=== PATIENT | female | born 1975 | race American Indian/Alaskan Native ===

== ENCOUNTER 2017-05-24 09:02 | Emergency (ER) | payer SELFPAY ==
[2017-05-24] MEDS ORDERED: Oxycodone/Acetaminophen 5/325 mg Tab PO STA (09:45)
[2017-05-24] MEDS ORDERED: Oxycodone/Acetaminophen 5/325 mg Tab ONE (09:47)
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
[2017-05-24 11:34] VITALS: BP 152/84; PULSE 88; RESP 18; TEMP 98.2
[2017-05-24 15:10] VITALS: O2SAT 97
== END 2017-05-24 11:38 | disposition home or self-care (01) ==
LOC: C.ER 09:02
DX: S00.83XA Contusion of other part of head, initial encounter (principal); Y04.0XXA Assault by unarmed brawl or fight, initial encounter

== ENCOUNTER 2017-09-02 18:06 | Emergency (ER) | payer SELFPAY ==
[2017-09-02 18:44] VITALS: BMI 24.3
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
[2017-09-02 22:44] VITALS: BP 134/70; PULSE 72; RESP 20; TEMP 98; O2SAT 98
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
== END 2017-09-02 21:35 | disposition home or self-care (01) ==
LOC: C.ER 18:06
DX: S33.5XXA Sprain of ligaments of lumbar spine, initial encounter (principal); V43.52XA Car driver injured in collision with other type car in traffic accident, initial encounter; Y92.410 Unspecified street and highway as the place of occurrence of the external cause; R07.81 Pleurodynia
CPT/HCPCS: 71046; 72100; 96372; 99284; J1885

== ENCOUNTER 2018-08-05 18:59 | Emergency (ER) | payer SELFPAY ==
[2018-08-05 18:59] VITALS: BMI 24.3
[2018-08-05 19:29] VITALS: O2SAT 98
--- NOTE | 2018-08-05 20:21 | C.PDOC ---
History Of Present Illness 43 y/o female pt presents to the ER c/o persistent cough for x1 week. Associated sx includes clear sputum. Pt originally have yellow sputum with her cough but sx has subsided. Pt denies bodyaches, fever, chills, recent travels, chest pain, dizziness, SOB, nausea, vomiting, sore throat, dysuria, blurry vision and double vision. 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 She also notes that her chiropractor informed her about her elevated blood pressure x2 months ago, but she had not seek any medical attention. Time Seen by Provider: 08/05/18 19:21 Chief Complaint (Nursing): Cough, Cold, Congestion History Per: Patient History/Exam Limitations: no limitations Onset/Duration Of Symptoms: Days (x1 week) Current Symptoms Are (Timing): Still Present Past Medical History Reviewed: Historical Data, Nursing Documentation, Vital Signs Vital Signs: Last Vital Signs Temp 98.4 F 08/05/18 19:14 Pulse 95 H 08/05/18 19:14 Resp 22 08/05/18 19:14 BP 173/101 H 08/05/18 19:14 Pulse Ox 98 08/05/18 19:14 - Medical History PMH: Back Problems, HTN Surgical History: Appendectomy Family History: States: Unknown Family Hx - Social History Hx Alcohol Use: Yes Hx Substance Use: No - Immunization History Hx Tetanus Toxoid Vaccination: Yes Hx Influenza Vaccination: No Hx Pneumococcal Vaccination: No Review Of Systems Except As Marked, All Systems Reviewed And Found Negative. Constitutional: Positive for: Other (+ sick contacts; no recent travels ). Negative for: Fever, Chills Eyes: Negative for: Other (blurry/double vision ) ENT: Negative for: Throat Pain Cardiovascular: Negative for: Chest Pain Respiratory: Positive for: Cough (with clear sputum ). Negative for: Shortness of Breath Gastrointestinal: Negative for: Nausea, Vomiting Genitourinary: Negative for: Dysuria Musculoskeletal: Negative for: Other (bodyaches ) Neurological: Negative for: Dizziness Physical Exam - Physical Exam Appears: Non-toxic, No Acute Distress Skin: Warm, Dry Head: Normacephalic Eye(s): bilateral: Normal Inspection, EOMI Nose: Normal Oral Mucosa: Moist Throat: Normal, No Erythema, No Exudate Neck: Normal ROM, Supple Chest: Symmetrical Cardiovascular: Rhythm Regular Respiratory: Normal Breath Sounds, No Rales, No Rhonchi, No Wheezing Gastrointestinal/Abdominal: Soft, No Tenderness Neurological/Psych: Oriented x3, Normal Speech ED Course And Treatment O2 Sat by Pulse Oximetry: 98 (RA) Pulse Ox Interpretation: Normal Medical Decision Making Medical Decision Making: Impression: cough Plans: -- CXR -- Zithromax Disposition - Disposition Referrals: [facility] [Outside] [facility] [Outside] Disposition: HOME/ ROUTINE Disposition Time: 20:00 Condition: GOOD Additional Instructions: AYANNA FREED, thank you for letting us take care of you today. The emergency medical care you received today was directed at your acute symptoms. If you were prescribed any medication, please fill it and take as directed. It may take several days for your symptoms to resolve. Return to the Emergency Department if your symptoms worsen, do not improve, or if you have any other problems. Please contact your doctor or call one of the physicians/clinics you have been referred to that are listed on the Patient Visit Information form that is included in your discharge packet. Bring any paperwork you were given at discharge with you along with any medications you are taking to your follow up visit. Our treatment cannot replace ongoing medical care by a primary care provider outside of the emergency department. Thank you for allowing the [facility] team to be part of your care today. Follow up with the clinic next week for re-evaluation of your cough and your blood pressure. Prescriptions: Azithromycin [Zithromax] 250 mg PO DAILY #4 tab Benzonatate [Tessalon Perle] 100 mg PO Q8 PRN #20 capsule PRN Reason: Cough Instructions: Upper Respiratory Infection (ED) Forms: [employer] (Andorran) - Clinical Impression Clinical Impression: Hypertension, Bronchitis - Scribe Statement The provider has reviewed the documentation as recorded by the Maurisio Marr Do Provider Attestation: All medical record entries made by the Scribe were at my direction and personally dictated by me. I have reviewed the chart and agree that the record accurately reflects my personal performance of the history, physical exam, medical decision making, and the department course for this patient. I have also personally directed, reviewed, and agree with the discharge instructions and disposition.
[2018-08-05 20:25] VITALS: BP 157/105; PULSE 82; RESP 18; TEMP 98.9
--- NOTE | 2018-08-06 18:18 | RAD ---
Date of service: 08/05/2018 HISTORY: cough r/o infiltrate COMPARISON: 09/02/2017 TECHNIQUE: Chest PA and lateral FINDINGS: LUNGS: No active pulmonary disease. PLEURA: No significant pleural effusion identified. No pneumothorax apparent. CARDIOVASCULAR: No aortic atherosclerotic calcification present. Normal cardiac size. No pulmonary vascular congestion. OSSEOUS STRUCTURES: No significant abnormalities. VISUALIZED UPPER ABDOMEN: Normal. OTHER FINDINGS: None. IMPRESSION: No active disease.
== END 2018-08-05 20:26 | disposition home or self-care (01) ==
LOC: C.ER 18:59
DX: J40 Bronchitis, not specified as acute or chronic (principal); I10 Essential (primary) hypertension

== ENCOUNTER 2018-08-23 18:55 | Emergency (ER) | payer SELFPAY ==
[2018-08-23 18:56] VITALS: BMI 24.3
[2018-08-23 19:12] VITALS: O2SAT 98
[2018-08-23 19:53] LABS: SQUAMOUS EPITHIAL 5 /hpf (0-5); URINE BACTERIA RARE (<OCC); URINE BILIRUBIN NEGATIVE (NEGATIVE); URINE BLOOD 2+ (NEGATIVE); URINE CLARITY Hazy (Clear); URINE COLOR Yellow (YELLOW); URINE GLUCOSE (UA) NORMAL (Normal); URINE LEUKOCYTE ESTERASE 3+ Leu/uL (Negative); URINE PROTEIN 1+ mg/dL (NEGATIVE); URINE UROBILINOGEN NORMAL mg/dL (0.2-1.0)
--- NOTE | 2018-08-23 20:31 | C.PDOC ---
History Of Present Illness 43 y/o female presents to the ED complaining of dysuria and urinary frequency for 3 days. Denies any abdominal pain, back pain, vomiting, fever, or other associated symptoms. Patient has not tried any OTC medication. Time Seen by Provider: 08/23/18 19:24 Chief Complaint (Nursing): Female Genitourinary History Per: Patient History/Exam Limitations: no limitations Onset/Duration Of Symptoms: Days (x 3) Current Symptoms Are (Timing): Still Present Past Medical History Reviewed: Historical Data, Nursing Documentation, Vital Signs Vital Signs: Last Vital Signs Temp 988.3 F H 08/23/18 19:03 Pulse 93 H 08/23/18 19:03 Resp 20 08/23/18 19:03 BP 153/96 H 08/23/18 19:03 Pulse Ox 98 08/23/18 19:03 - Medical History PMH: Back Problems, HTN Surgical History: Appendectomy Family History: States: Unknown Family Hx - Social History Hx Alcohol Use: No Hx Substance Use: No - Immunization History Hx Tetanus Toxoid Vaccination: Yes Hx Influenza Vaccination: No Hx Pneumococcal Vaccination: No Review Of Systems Constitutional: Negative for: Fever, Chills Respiratory: Negative for: Shortness of Breath Gastrointestinal: Negative for: Nausea, Vomiting, Abdominal Pain, Diarrhea Genitourinary: Positive for: Dysuria, Frequency. Negative for: Incontinence, Hematuria, Vaginal Bleeding Musculoskeletal: Negative for: Back Pain Neurological: Negative for: Weakness, Numbness Physical Exam - Physical Exam Appears: Non-toxic, No Acute Distress Skin: Warm, Dry Head: Atraumatic, Normacephalic Eye(s): bilateral: Normal Inspection, PERRL, EOMI Oral Mucosa: Moist Neck: Normal ROM Chest: Symmetrical Respiratory: No Accessory Muscle Use, Other (No respiratory distress) Gastrointestinal/Abdominal: Soft, No Tenderness, No Guarding, No Rebound Pelvic: Other (Deferred) Extremity: Bilateral: Atraumatic, Normal ROM Neurological/Psych: Oriented x3 ED Course And Treatment - Laboratory Results Lab Results: Urine Color Yellow (YELLOW) 08/23/18 19:36 Urine Clarity Hazy (Clear) 08/23/18 19:36 Urine pH 5.0 (5.0-8.0) 08/23/18 19:36 Ur Specific [place] 1.025 (1.003-1.030) 08/23/18 19:36 Urine Protein 1+ mg/dL (NEGATIVE) H 08/23/18 19:36 Urine Glucose (UA) Normal mg/dL (Normal) 08/23/18 19:36 Urine Ketones Negative mg/dL (NEGATIVE) 08/23/18 19:36 Urine Blood 2+ (NEGATIVE) H 08/23/18 19:36 Urine Nitrate Negative (NEGATIVE) 08/23/18 19:36 Urine Bilirubin Negative (NEGATIVE) 08/23/18 19:36 Urine Urobilinogen Normal mg/dL (0.2-1.0) 08/23/18 19:36 Ur Leukocyte Esterase 3+ [place]/uL (Negative) H 08/23/18 19:36 Urine WBC (Auto) 21 /hpf (0-5) H 08/23/18 19:36 Urine RBC (Auto) 39 /hpf (0-3) H 08/23/18 19:36 Ur Squamous Epith Cells 5 /hpf (0-5) 08/23/18 19:36 Urine Bacteria Rare (<OCC) 08/23/18 19:36 Urine Yeast (Budding) Rare /hpf (NEGATIVE) H 08/23/18 19:36 Urine HCG, Qual Negative (NEGATIVE) 08/23/18 19:36 Urine HCG, Qual Negative (NEGATIVE) 08/23/18 19:36 O2 Sat by Pulse Oximetry: 98 (RA) Pulse Ox Interpretation: Normal Progress Note: Urine sent to the lab. UA resulted, and is consistent with UTI. Treated with pyridium in the ED. Patient will be discharged home with prescriptions for pyridium and macrobid. Return precautions were discussed and understood by pt Disposition Counseled Patient/Family Regarding: Diagnosis, Need For Followup - Disposition Referrals: [facility] [Outside] Disposition: HOME/ ROUTINE Disposition Time: 21:30 Condition: STABLE Additional Instructions: Please follow up with PMD Take medications as directed Increase PO fluids Return to ER if worse Prescriptions: Nitrofurantoin Macrocrystals [Macrobid] 1 cap PO BID #14 cap Phenazopyridine HCl [Pyridium] 100 mg PO TID #6 tab Instructions: Urinary Tract Infection, Adult (DC) Forms: [facility] ([place]) - POA Present On Arrival: None - Clinical Impression Clinical Impression: UTI (urinary tract infection) - PA / ROUGHER HELPER / Resident Statement MD/DO has reviewed & agrees with the documentation as recorded. - Scribe Statement The provider has reviewed the documentation as recorded by the Scribe Brenda Valente All medical record entries made by the [place] were at my direction and personally dictated by me. I have reviewed the chart and agree that the record accurately reflects my personal performance of the history, physical exam, medical decision making, and the department course for this patient. I have also personally directed, reviewed, and agree with the discharge instructions and disposition.
[2018-08-23 20:34] VITALS: TEMP 98.3
[2018-08-23 20:38] VITALS: BP 149/98; PULSE 79; RESP 16
== END 2018-08-23 20:38 | disposition home or self-care (01) ==
LOC: C.ER 18:55
DX: N39.0 Urinary tract infection, site not specified (principal); I10 Essential (primary) hypertension